=== PATIENT | male | born 1975 | race Two or more races ===

== ENCOUNTER 2024-09-22 09:06 | Outpatient (CLI) | payer OTHER ==
[~2024-09-22 09:06] MED LIST: MAALOX525 MG/15 PO; PROTONIX20 MG PO; TORADOL10 MG PO
== END 2024-09-22 09:07 | disposition home or self-care (01) ==
LOC: SONOGRAMA 09:06
PROVIDERS: ATTEND Pathology Anatomic Pathology & Clinical Pathology
DX: D44.0 Neoplasm of uncertain behavior of thyroid gland (principal); E04.8 Other specified nontoxic goiter

== ENCOUNTER 2024-09-22 09:50 | Emergency (ER) | payer OTHER ==
[~2024-09-22] VITALS: Ht 175.3 cm; Wt 81.6 kg
[2024-09-22] MEDS ORDERED: TETANUS & DIPHTHERIA TOX,ADULT 0.5 ML VIAL IM STA (11:24)
== END 2024-09-22 11:47 | disposition home or self-care (01) ==
LOC: ER 09:57
DX: S61.012A Laceration without foreign body of left thumb without damage to nail, initial encounter (principal); W45.8XXA Other foreign body or object entering through skin, initial encounter; Y93.89 Activity, other specified; Y92.89 Other specified places as the place of occurrence of the external cause; Y99.9 Unspecified external cause status